=== PATIENT | male | born 1945 | race Caucasian/White ===

== ENCOUNTER → 2017-03-16 | Outpatient (CLI) | payer OTHER, BC ==
--- NOTE | ~2017-03-16 | 2DMMODE ---
[facility] [address] [place] [address] 2 D/M-MODE ECHOCARDIOGRAM Name: ANITA AREVALO Room #: REG [facility]#: [id number] Admission: 03/16/17 Attend Phys: Hi Gamez Discharge: Date of : 41 Date of Service: 03/16/17 1422 Report #: [id number] THIS REPORT FOR: //name// APPROVED REPORT Study performed: 03/16/2017 13:53:26 EXAM: Comprehensive 2D, Doppler, and color-flow Echocardiogram Patient Location: Out-Patient HR: 56 bpm Rhythm: Atrial Fibrillation Other Information Study Quality: AdequateGood Indications Afib 2D Dimensions RVDd: 42.92 mm LVEF(%): 50.38 (>50%) IVSd: 9.27 (7-11mm) LVOT Diam: 23.20 (18-24mm) LVDd: 51.34 mm PWd: 9.83 (7-11mm) Ascending Ao: 40.49 (22-36mm) LVDs: 38.11 (25-40mm) Aortic Root: 33.94 mm Pena's LVEF: 50.38 % Volumes Left Atrial Volume (Systole) Single Plane 4CH: 89.41 mL Single Plane 2CH: 135.42 mL LA ESV Index: 52.00 mL/m2 Aortic Valve AoV Peak Kiran.: 1.06 m/s AO Peak Gr.: 4.49 mmHg LVOT Max P.53 mmHg LVOT Max V: 0.94 m/s BRITTANEY Vmax: 3.75 cm2 Mitral Valve MV Decel. Time: 174.52 ms MV E Max Kiran.: 0.96 m/s [facility] [address] [place] [address] 2 D/M-MODE ECHOCARDIOGRAM Name: ANITA AREVALO Room #: [facility]#: [id number] Admission: 03/16/17 Attend Phys: Hi Gamez Discharge: Date of : 41 Date of Service: 03/16/17 1422 Report #: [id number] Pulmonary Valve PV Peak Kiran.: 0.72 m/s PV Peak Gr.: 2.10 mmHg Tricuspid Valve TR Peak Kiran.: 2.64 m/s RAP Estimate: 10.00 mmHg TR Peak Gr.: 27.85 mmHg RVSP: 39.00 mmHg Left Ventricle The left ventricle is normal size. There is normal LV segmental wall motion. There is normal left ventricular wall thickness. Left ventricular systolic function is normal. LVEF is 55%. This study is not technically sufficient to allow evaluation of the LV diastolic function due to atrial fibrillation. Right Ventricle Right ventricle is mildly dilated. The right ventricular systolic function is normal. Atria Left atrium is severely dilated. Right atrium is severely dilated. Aortic Valve Aortic valve is mildly calcified. Mild aortic regurgitation. There is no aortic valvular stenosis. Mitral Valve The mitral valve is mildly thickened. Mild mitral regurgitation. Tricuspid Valve The tricuspid valve is normal in structure. There is mild to moderate tricuspid regurgitation. The right atrial pressure is estimated at 10 mmHg. There is mild pulmonary hypertension with an estimated PAP of 39mmHg. Pulmonic Valve The pulmonary valve is normal in structure. Mild pulmonic regurgitation. Great Vessels The aortic root is normal in size. The ascending aorta is mildly dilated. IVC is dilated and collapses >50% with inspiration. Pericardium [facility] [address] [employer] [address] [address] 2 D/M-MODE ECHOCARDIOGRAM Name: ANITA AREVALO Room #: REG [facility]#: [id number] Admission: 03/16/17 Attend Phys: Hi Gamez Discharge: Date of : 41 Date of Service: 03/16/17 1422 Report #: [id number] There is no pericardial effusion. <Conclusion> The left ventricle is normal size. Left ventricular systolic function is normal. Right ventricle is mildly dilated. Right atrium is severely dilated. Left atrium is severely dilated. Aortic valve is mildly calcified. Mild aortic regurgitation. Mild mitral regurgitation. There is mild to moderate tricuspid regurgitation. The right atrial pressure is estimated at 10 mmHg. There is mild pulmonary hypertension with an estimated PAP of 39mmHg. <ELECTRONICALLY SIGNED> By: Lb Marquez MD 03/16/17 142 21 21 Lb Marquez MD /INF
== END ==
LOC: CV 13:38
DX: I48.91 Unspecified atrial fibrillation (principal)

== ENCOUNTER → 2017-11-07 | Outpatient (CLI) | payer OTHER, BC ==
[~2017-11-07] MED LIST: FOLIC ACID1 MG PO; FOLITAB 500 CA1 EAC1 PO; HYDROCHLOROTHIA25 M1 PO; LISINOPRIL10 MG PO; REMICADE 1100 MG/VIA INJECTION; TREXALL7.5 MG PO; UNICOMPLEX M TA1 TA1 PO; XARELTO20 MG PO
== END ==
LOC: NUC 08:26
DX: I10 Essential (primary) hypertension (principal); I48.91 Unspecified atrial fibrillation

== ENCOUNTER → 2017-11-20 | Outpatient (CLI) | payer OTHER, BC ==
[~2017-11-20] VITALS: Ht 185.4 cm; Wt 106.6 kg
--- NOTE | ~2017-11-20 | EKG ---
[address] [address] ELECTROCARDIOGRAM REPORT Name: ANITA AREVALO [id number] Admission: 11/20/17 Attend Phys: Lb Marquez MD Discharge: Date of : 41 Report #: [id number] THIS REPORT FOR: //name// [facility] Test Date: 2017-11-20 Test Time: 08:32:35 Pat Name: ANITA AREVALO Department: Room: Gender: Plant Tech: Tg DURAN : 1945 Requested By: Lb Marquez Order Number: [id number] MD: Ovi Downs Measurements Intervals [place] Rate: 59 P: [place]: QRS: 82 QRSD: 99 T: 32 QT: 632 QTc: 627 Interpretive Statements Atrial fibrillation Nonspecific T wave abnormality No previous ECG available for comparison Electronically Signed On 11-20-2017 9:12:23 NURSE AIDE by Ovi Downs [email or web address] <ELECTRONICALLY SIGNED> By: Ovi Downs MD, [facility] 11/20/17 0912 0832 0832 Ovi Downs MD, FAC /EPI
--- NOTE | ~2017-11-20 | CATHLAB ---
[facility] [address] [place] [address] INVASIVE PROCEDURE REPORT Name: ANITA AREVALO [facility]: [facility] [id number] Admission: 11/20/17 Attend Phys: Lb Marquez MD Discharge: Date of : 41 Date of Service: 11/20/17 1118 Report #: [id number] THIS REPORT FOR: //name// APPROVED REPORT Patient Details Patient Status: Out-Patient Room #: The patient is a 72 year-old male Event Personnel Lb Marquez Night Cleaner, Juan Miguel Ortiz RN, Caio Melton, Halima Saldaña, Grace Cunningham Procedures Performed Left Heart Cath w/or w/o Coronaries [id number] [facility] Indication Arrhythmia, Dyspnea, Positive stress test Risk Factors Hypercholesterolemia, Hypertension Procedure Narrative The Right Groin^ was infiltrated with 1% Lidocaine subcutaneous anesthesia. A PINNACLE 4FR Sheath #[id number] sheath was inserted into the RFA^. Coronary angiography was performed using coronary diagnostic catheters. The right coronary system was accessed and visualized with a JR4 catheter. The left coronary system was accessed and visualized with a JL4 catheter. The left ventricle was accessed and visualized with a PIGTAIL catheter. Left ventricular/Aortic Valve gradient assessed via catheter pullback. Hemostasis was obtained with manual pressure following sheath removal without any complications. The patient tolerated the procedure well and there were no complications associated with the procedure. There was no hematoma. Intraoperative Conscious Sedation Sedation start time: 10.25 Case end Time: 10.39 Fentanyl 25.0 mcg Versed 1.5 mg Fluoro Time: 2.34 minutes Dose: DAP 5117.80 cGycm2 657 mGy [facility] [place] [address] INVASIVE PROCEDURE REPORT Name: ANITA AREVALO Room #: REG [facility]#: [id number] Admission: 11/20/17 Attend Phys: Lb Marquez MD Discharge: Date of : 41 Date of Service: 11/20/17 1118 Report #: [id number] Contrast Type and Amount: Visipaque 55 ml Coronary Angiography The patient's coronary anatomy is right dominant. Diagnostic Cath Left Main Patent vessel, with no flow-limiting lesions. LAD Patent vessel, with mild to moderate disease in the mid segment, 30-40%. Diagonal 1 Patent vessel, with no flow-limiting lesions. Diagonal 2 Patent vessel, with no flow-limiting lesions. Circumflex Small size caliber vessel, with no flow-limiting lesions. Right Coronary Moderate to large size caliber vessel, dominant. This vessel is patent with mild stenosis in mid segment, 20%. R PDA Patent vessel, with no flow-limiting lesions. RPLV Patent vessel, with no flow-limiting lesions. Left Ventriculography Left Ventriculography was not performed. And LVEDP was measured and there is no gradient across the outflow tract. Hemodynamics The aortic pressure is 142/68 mmHg with a mean of 97 mmHg. The left ventricular pressure is 143/13 mmHg with a mean of mmHg. The left ventricular end diastolic pressure is 18 mmHg. Conclusion 1. 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 2. 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 3. Recommend medical therapy. <ELECTRONICALLY SIGNED> By: Lb Marquez MD 11/20/17 1118 1118 1118 Lb Marquez MD /INF
--- NOTE | ~2017-11-20 | EKG ---
[address] [address] ELECTROCARDIOGRAM REPORT Name: ANITA AREVALO [id number] Admission: 11/20/17 Attend Phys: Lb Marquez MD Discharge: Date of : 41 Report #: [id number] THIS REPORT FOR: //name// [facility] Test Date: 2017-11-20 Test Time: 12:41:08 Pat Name: ANITA AREVALO Department: Room: Gender: Resawyer: Tg DURAN : 1945 Requested By: Lb Marquez Order Number: [id number] MD: Hi Gamez Measurements Intervals [place] Rate: 46 P: [place]: QRS: 73 QRSD: 102 T: 84 QT: 526 QTc: 461 Interpretive Statements Atrial fibrillation with bradycardic response Nonspecific T abnrm, anterolateral leads Compared to ECG 11/20/2017 08:32:35 T-wave abnormality no longer present Electronically Signed On 11-20-2017 14:04:21 LAW LIBRARIAN by Hi Gamez [email or web address] <ELECTRONICALLY SIGNED> By: Hi Gamez MD 11/20/17 1404 1241 1241 Hi Gamez MD /DRU
[2017-11-20 08:12] VITALS: BP 148/89
[2017-11-20 08:46] LABS: HEMATOCRIT 43.3 % (42.0-52.0); HEMOGLOBIN 14.9 gm/dL (14.0-18.0); MCH 31.5 pg (26.0-34.0); MCHC 34.5 g/dL (28.0-37.0); MCV 91.2 fL (80.0-100.0); RBC 4.74 mil/uL (4.50-6.00); RDW 14.1 % (10.5-14.5); WBC 7.8 thou/uL (4.0-11.0)
[2017-11-20 08:54] LABS: CALCIUM 9.1 mg/dL (8.5-10.1); CREATININE 1.4 mg/dL (0.7-1.3); POTASSIUM 4.1 mmol/L (3.5-5.1)
== END | disposition home or self-care (01) ==
LOC: CATH 08:11
PROVIDERS: Internal Medicine Cardiovascular Disease
DX: I25.10 Atherosclerotic heart disease of native coronary artery without angina pectoris (principal); I10 Essential (primary) hypertension; E78.00 Pure hypercholesterolemia, unspecified; I48.91 Unspecified atrial fibrillation; M06.9 Rheumatoid arthritis, unspecified; Z85.828 Personal history of other malignant neoplasm of skin; Z87.891 Personal history of nicotine dependence; Z79.899 Other long term (current) drug therapy